=== PATIENT | female | born 1985 | race Caucasian/White ===

== ENCOUNTER 2019-09-21 13:23 | Inpatient (IN) | payer SELFPAY ==
[2019-09-21 13:33] VITALS: BP 129/84; PULSE 94; RESP 14; TEMP 37.2; O2SAT 99; BMI 24.7
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
[2019-09-21 13:50] VITALS: BP 107/56; PULSE 83; RESP 16; TEMP 36.9; O2SAT 98
[2019-09-21 14:22] LABS: Basophils # 0.1 10^3/uL (0.0-0.1); Basophils % 0.9 %; Eosinophils # 0.2 10^3/uL (0.0-0.8); Eosinophils % 3.1 %; Hematocrit 41.7 % (37.0-47.0); Hemoglobin 13.4 g/dL (11.5-15.3); Lymphocytes # 3.2 10^3/uL (0.8-4.8); Mean Corpuscular HGB Conc 32.1 g/dL (30.0-36.0); Mean Corpuscular Hemoglobin 30.7 pg (28.0-34.0); Mean Corpuscular Volume 95.4 fL (81-99); Mean Platelet Volume 10.5 fL (7.4-10.4); Monocytes # 0.7 10^3/uL (0.2-0.9); Monocytes % 8.9 %; Neutrophils # 3.6 10^3/uL (1.8-7.7); Neutrophils % 45.8 %; Nucleated Red Blood Cells % 0 %; Platelet Count 435 10^3/cmm (130-400); Red Blood Count 4.37 10^6/uL (4.1-5.3); Red Cell Distribution Width 13.1 % (12.1-15.1); White Blood Count 7.9 10^3/uL (4.0-10.0)
[2019-09-21 14:35] LABS: HCG, Serum Qual Negative (Negative)
[2019-09-21 14:36] LABS: Bilirubin Urine Neg (NEGATIVE); Blood Urine 2+ (Negative); Glucose Urine UA Norm (Normal); Ketones Urine Negative (Negative); Leukocyte Esterase Urine 2+ (Negative); Nitrate Urine Positive (Negative); Protein Urine Neg (Negative); Specific Gravity, Urine 1.015 (1.005-1.030); Urine Appearance Cloudy (CLEAR); Urine Color Yellow (Yellow); Urobilinogen Urine Norm (Negative); pH Urine 6 (5-7)
[2019-09-21] MEDS: LORazepam 1 mg Tablet PO (14:43)
[2019-09-21 14:45] LABS: Alanine Aminotransferase 15 U/L (0-33); Alkaline Phosphatase 77 IU/L (35-105); Anion Gap 14.7 (5-19); Aspartate Amino Transferase 15 U/L (0-32); Blood Urea Nitrogen 6 mg/dL (6-20); Calcium 8.6 mg/dL (8.5-10.5); Carbon Dioxide 24 mmol/L (22-29); Chloride 105 mmol/L (98-107); Globulin 2.9 g/dL (1.3-4.6); Glomerular Filtration Rate 94.7 mL/min (90-130); Glucose 105 mg/dL (65-115); Osmolality Calculated 286 mOsm/kg (285-295); Potassium 3.7 mmol/L (3.5-5.1); Sodium 140 mmol/L (136-145); Thyroid Stimulating Hormone 0.75 uIU/mL (0.27-4.20); Total Bilirubin 0.6 mg/dL (0.15-1.2); Total Protein 6.9 g/dL (6.6-8.7)
[2019-09-21 14:48] LABS: Bacteria Urine 4+; RBC Urine 0-4 /hpf (0-2); WBC Urine 15-25 /hpf (0-5)
[2019-09-21 14:49] LABS: Add Urine Culture? Yes; Trichomonas Urine 2+
[2019-09-21 14:51] LABS: Amphetamines Screen Urine Positive (Negative); Barbiturates Screen Urine Negative (Negative); Benzodiazepines Screen Urine Negative (Negative); Cocaine Screen Urine Negative (Negative); Opiate Screen Urine Negative (Negative); PCP Screen Urine Negative (Negative); THC Screen Urine Positive (Negative)
[2019-09-21 14:52] LABS: Acetaminophen < 5.0 ug/mL (10-30); Alcohol Level < 10 mg/dL (0-10); Salicylate < 0.3 mg/dL (3-10)
[2019-09-21 14:55] VITALS: BP 108/74; PULSE 76; RESP 16; TEMP 36.6; O2SAT 99
[2019-09-21 15:05] VITALS: BP 113/76; PULSE 76; RESP 20; TEMP 36.6; O2SAT 100
[2019-09-21 20:49] VITALS: BP 115/67; PULSE 78; RESP 19; TEMP 37.1; O2SAT 97
[2019-09-21] MEDS: trazodone 50 mg Tablet PO (21:01)
--- NOTE | 2019-09-21 21:01 | PC.NURSE ---
TRAZODONE PT REQUESTING SLEEP AID. ADMINISTERED TRAZODONE 50 MG PO FOR SLEEP. WILL MONITOR FOR MEDICATION EFFECTIVENESS.
[2019-09-22 06:00] VITALS: BP 106/70; PULSE 64; RESP 16; TEMP 36.6; O2SAT 98
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
[2019-09-22] MEDS: sulfamethoxazole-trimeth DS 160-800 mg Tablet 1 TAB PO (11:40)
[2019-09-22] MEDS: fluoxetine 20 mg Capsule PO (13:35)
[2019-09-22 14:00] VITALS: BP 110/71; PULSE 73; RESP 18; TEMP 36.8; O2SAT 97
[2019-09-22] MEDS: prazosin 1 mg Capsule PO (21:10)
[2019-09-22] MEDS: diphenhydrAMINE 50 mg Capsule PO (21:54)
[2019-09-22 22:00] VITALS: BP 125/77; PULSE 88; RESP 17; TEMP 36.9; O2SAT 96
--- NOTE | 2019-09-22 22:07 | PC.NURSE ---
BACTRIM I WAS GIVING PATIENT HER NIGHT TIME MEDS, PT. STATED HER HANDS WERE REALLY ITCHING. PT. HAS BEEN STARTED ON BACTRIM FOR A UTI. UPON FURTHER INSPECTION PT SEEMS TO HAVE HIVES ON BILATERAL ARMS. PER TELEPHONE AUTHORIZATION FROM DR. KINGSTON PT WAS GIVEN BENADRYL 50 MG AND BACTRIM WAS STOPPED. DR. KINGSTON WILL START ANOTHER ANTIBIOTIC.
[2019-09-23 06:00] VITALS: BP 130/74; PULSE 81; RESP 16; TEMP 36.6; O2SAT 97
[2019-09-23] MEDS: fluoxetine 20 mg Capsule PO (08:12)
[2019-09-23] MEDS: ciprofloxacin 500 mg Tablet PO (08:12)
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
[2019-09-23 13:50] VITALS: BP 115/68; PULSE 77; RESP 18; TEMP 36.9; O2SAT 99
[2019-09-23 14:18] VITALS: BP 115/68; PULSE 77; RESP 18; TEMP 36.9; O2SAT 99
== END 2019-09-23 14:35 | DRG 897 ==
LOC: ER 14:38 → NP 14:39
PROVIDERS: Physician Assistant; Admitting Provider Psychiatry & Neurology Psychiatry; Family Provider Family Medicine; PCP Family Medicine; Visit Provider Psychiatry & Neurology Psychiatry
DX: F15.20 Other stimulant dependence, uncomplicated (principal); C96.6 Unifocal Langerhans-cell histiocytosis; R45.851 Suicidal ideations; F32.9 Major depressive disorder, single episode, unspecified; F43.10 Post-traumatic stress disorder, unspecified; F17.210 Nicotine dependence, cigarettes, uncomplicated; F41.9 Anxiety disorder, unspecified; Z81.8 Family history of other mental and behavioral disorders
CPT/HCPCS: 12345; 80053; 80306; 80307; 81001; 84443; 84703; 85025; 87077; 87086; 87186; 99284; Q0163

== ENCOUNTER 2020-04-08 16:35 | Emergency (ER) | payer SELFPAY ==
[2020-04-08 16:45] VITALS: BP 146/98; PULSE 93; RESP 18; TEMP 37.1; O2SAT 100; BMI 23.9
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
[2020-04-08 17:51] LABS: Urine Appearance Hazy (CLEAR); Urine Color Yellow (Yellow); pH Urine 6 (5-7)
[2020-04-08 17:52] LABS: Add Urine Microscopic? YES; Bilirubin Urine Neg (Negative); Blood Urine 2+ (Negative); Glucose Urine UA Norm (Normal); Ketones Urine 2+ (Negative); Leukocyte Esterase Urine 2+ (Negative); Nitrate Urine Negative (Negative); Protein Urine Trace (Negative); Urobilinogen Urine 1 mg/dL (Negative)
[2020-04-08 17:54] LABS: Add Urine Culture? No; Bacteria Urine 2+ /hpf; Squamous Epithelial Cell Urine 25-40 /hpf (0-5); WBC Urine 80-100 /hpf (0-5)
[2020-04-08] MEDS: azithromycin 250 mg Tablet 1000 MG PO (17:59)
[2020-04-08] MEDS: cefTRIAXone 1,000 MG in lidocaine 1% 2.1 ML 1 MG IM (18:06)
[2020-04-08 18:26] LABS: Hepatitis C Virus Antibody Non-Reactive (Nonreactive)
[2020-04-08 18:35] LABS: HIV 1 & 2 Antibody Non-Reactive (Non-Reactiv); HIV 1 & 2 Antigen Non-Reactive (Non-Reactiv)
== END 2020-04-08 18:20 | disposition home or self-care (01) ==
PROVIDERS: Emergency Provider Nurse Practitioner Family; PCP Family Medicine
DX: Z20.5 Contact with and (suspected) exposure to viral hepatitis (principal); F17.210 Nicotine dependence, cigarettes, uncomplicated
CPT/HCPCS: 12345; 36415; 81001; 86803; 87806; 96372; 99281; 99283; J0696; Q0144

== ENCOUNTER 2021-02-11 23:15 | Emergency (ER) | payer SELFPAY ==
[2021-02-11 23:20] VITALS: BP 145/86; PULSE 63; RESP 20; TEMP 36.6; O2SAT 97; BMI 27.4
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
[2021-02-12 00:30] VITALS: BP 145/84; PULSE 78; RESP 16; O2SAT 100
[2021-02-12 00:57] VITALS: BP 138/78; PULSE 67; RESP 16; O2SAT 98
== END 2021-02-12 00:59 | disposition home or self-care (01) ==
PROVIDERS: Emergency Provider Nurse Practitioner Family
DX: S09.8XXA Other specified injuries of head, initial encounter (principal); F17.210 Nicotine dependence, cigarettes, uncomplicated; Y04.2XXA Assault by strike against or bumped into by another person, initial encounter
CPT/HCPCS: 70450; 99282

== ENCOUNTER → 2021-04-17 15:30 | Outpatient (BNVA) | payer SELFPAY | PROVIDERS: Visit Provider Nurse Practitioner | DX: J02.9 Acute pharyngitis, unspecified (principal) | CPT/HCPCS: 87400; 87880 ==

== ENCOUNTER → 2021-08-21 13:46 | Outpatient (BNVA) | payer SELFPAY | PROVIDERS: Visit Provider Family Medicine | DX: R58 Hemorrhage, not elsewhere classified (principal); N89.8 Other specified noninflammatory disorders of vagina; N93.9 Abnormal uterine and vaginal bleeding, unspecified | CPT/HCPCS: 87491; 87661 ==

== ENCOUNTER 2021-09-06 08:48 | Emergency (ER) | payer SELFPAY ==
--- NOTE | 2021-09-06 08:51 | XR_ITS ---
WS: [id number] XR ankle RT min 3V* [id number] REASON FOR EXAM: injury FINDINGS: Soft tissue swelling over the lateral malleolus. No fracture or focal bone lesion. Joint spaces of the right ankle are intact and well preserved. XR/XR ankle RT min 3V* [id number] IMPRESSION: Soft tissue swelling with no definite bone or joint abnormality.
[2021-09-06 09:16] VITALS: BP 128/75; PULSE 77; RESP 18; TEMP 36.6; O2SAT 95; BMI 27.4
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
[2021-09-06 10:13] VITALS: BP 104/67; PULSE 75; RESP 18; O2SAT 96
== END 2021-09-06 09:50 | disposition home or self-care (01) ==
PROVIDERS: Emergency Provider Physician Assistant
DX: S93.401A Sprain of unspecified ligament of right ankle, initial encounter (principal); W50.0XXA Accidental hit or strike by another person, initial encounter
CPT/HCPCS: 73610; 99283; E0114

== ENCOUNTER → 2023-04-02 11:09 | Outpatient (BNVA) | payer SELFPAY | PROVIDERS: Visit Provider Nurse Practitioner | DX: R51.9 Headache, unspecified (principal); R30.0 Dysuria; N30.01 Acute cystitis with hematuria | CPT/HCPCS: 81000; 87426 ==

== ENCOUNTER → 2024-09-07 15:50 | Outpatient (BNVA) | payer MEDICAID, SELFPAY | PROVIDERS: Visit Provider Obstetrics & Gynecology | DX: N93.9 Abnormal uterine and vaginal bleeding, unspecified (principal) | CPT/HCPCS: 83001 ==